=== PATIENT | male | born 1950 | race African-American/Black ===

== ENCOUNTER 2016-08-04 10:16 | Emergency (ER) | payer OTHER, MEDICAID ==
[~2016-08-04] VITALS: Ht 180.3 cm; Wt 97.5 kg
[~2016-08-04 10:16] MED LIST: ASPI-264 OR; GABA-494 OR; HYDR-3682 PO; NAPR-607 OR; OME20GT; PROCTOSOL HC 2.5%; SENN8.6T26 PO; TIZA4TAB3 PO
[2016-08-04 11:38] VITALS: BP 108/82
== END 2016-08-04 12:24 | disposition home or self-care (01) ==
LOC: ER 10:19
DX: L03.114 Cellulitis of left upper limb (principal); Z87.891 Personal history of nicotine dependence; Z88.6 Allergy status to analgesic agent; Z79.82 Long term (current) use of aspirin; Z79.899 Other long term (current) drug therapy

== ENCOUNTER 2017-02-21 02:11 | Emergency (ER) | payer OTHER, MEDICAID ==
[~2017-02-21] VITALS: Ht 180.3 cm; Wt 100.7 kg
[~2017-02-21 02:11] MED LIST changes: -NAPR-607 OR; +NAPR500T4 OR
[2017-02-21 03:17] LABS: Urine Bilirubin Negative (Negative); Urine Blood Negative /uL (Negative); Urine Color Yellow (Yellow); Urine Glucose Normal (Normal); Urine Ketone Negative (Negative); Urine Nitrite Negative (Negative); Urine RBC 3 /hpf (0 - 3); Urine Squamous Epithelial Cell FEW /hpf (<5); Urine Urobilinogen Normal (Negative); Urine pH 5.5 (5.0-8.0)
[2017-02-21 03:25] LABS: Basophils # (auto) 0.1 uL; Basophils % (auto) 0.7 % (0.0-2.0); Eosinophils # (auto) 0.4 uL; Eosinophils % (auto) 4.8 % (0.0-7.0); Hematocrit 34.9 % (41.0-53.0); Hemoglobin 11.9 g/dL (13.5-17.5); Lymphocytes # (auto) 3.4 uL; Lymphocytes % (auto) 37.9 % (10.0-50.0); Mean Corpuscular Hemoglobin 31.9 pg (28.0-32.0); Mean Corpuscular Hgb Conc. 34.1 g/dL (32.0-36.0); Mean Corpuscular Volume 93.6 fL (80.0-100.0); Mean Platelet Volume 8.4 fL (6.9-10.8); Monocytes # (auto) 0.7 uL; Monocytes % (auto) 7.9 % (0.0-12.0); Neutrophils # (auto) 4.4 uL; Neutrophils % (auto) 48.7 % (37.0-80.0); Nucleated Red Blood Cells % 0.1 %; Platelet Count (auto) 226 10^3/uL (140-450); Red Cell Distribution Width 13.7 % (11.8-14.3)
[2017-02-21 03:44] LABS: Albumin 3.8 g/dL (3.4-5.0); Amylase 74 U/L (25-115); Anion Gap 7 (5-15); BUN/Creatinine Ratio 12.2; Blood Urea Nitrogen 16 mg/dL (7-18); Calcium 8.3 mg/dL (8.5-10.1); Carbon Dioxide 28 mmol/L (21-32); Chloride 112 mmol/L (98-107); GFR African American 70 mL/min; GFR Non-African American 58 mL/min; Glucose 112 mg/dL (74-106); Magnesium 2.3 mg/dL (1.6-2.6); Potassium 4.1 mmol/L (3.5-5.1); Sodium 147 mmol/L (136-145)
[2017-02-21 03:46] LABS: Alkaline Phosphatase 108 U/L (45-117); Aspartate Aminotransferase 17 U/L (15-37); Bilirubin, Total 0.3 mg/dL (0.2-1.0); Total Protein 7.5 g/dL (6.4-8.2)
[2017-02-21 04:29] LABS: INR 0.95 (0.9-1.15); Partial Thromboplastin Time 26.6 sec (22.64-33.71); Prothrombin Time 10.3 sec (9.37-12.3)
[2017-02-21 05:27] VITALS: BP 113/68
[2017-02-21] MEDS ORDERED: KETOROLAC TROMETH 60MG/2ML VIAL IM ONE (07:45)
== END 2017-02-21 08:01 | disposition home or self-care (01) ==
LOC: EDBD 02:15 → ER 02:15
DX: S39.011A Strain of muscle, fascia and tendon of abdomen, initial encounter (principal); M54.9 Dorsalgia, unspecified; G89.29 Other chronic pain; Z88.6 Allergy status to analgesic agent; Z79.899 Other long term (current) drug therapy; Z79.82 Long term (current) use of aspirin; X58.XXXA Exposure to other specified factors, initial encounter; Y93.89 Activity, other specified; Y92.89 Other specified places as the place of occurrence of the external cause; Y99.8 Other external cause status
CPT/HCPCS: 36415; 74176; 80053; 81001; 82150; 83690; 83735; 84484; 85025; 85610; 85730; 93005

== ENCOUNTER 2017-08-26 15:49 | Emergency (ER) | payer OTHER, MEDICAID ==
[~2017-08-26] VITALS: Ht 180.3 cm; Wt 97.5 kg
[~2017-08-26 15:49] MED LIST changes: -GABA-494 OR; +GABA100C9 OR; +NAPR500T31 OR; -NAPR500T4 OR
[2017-08-26 16:58] VITALS: BP 120/77
== END 2017-08-26 18:01 | disposition home or self-care (01) ==
LOC: ER 15:56
DX: S62.646A Nondisplaced fracture of proximal phalanx of right little finger, initial encounter for closed fracture (principal); Z88.6 Allergy status to analgesic agent; W18.39XA Other fall on same level, initial encounter; Y93.89 Activity, other specified; Y92.488 Other paved roadways as the place of occurrence of the external cause; Y99.8 Other external cause status
CPT/HCPCS: 29125; 73130

== ENCOUNTER 2018-10-07 05:30 | Emergency (ER) | payer OTHER, MEDICAID ==
[~2018-10-07] VITALS: Ht 180.3 cm; Wt 102.1 kg
[2018-10-07 05:50] VITALS: BP 118/54
== END 2018-10-07 08:26 | disposition home or self-care (01) ==
LOC: ER 05:30
DX: T17.228A Food in pharynx causing other injury, initial encounter (principal); Z88.6 Allergy status to analgesic agent; X58.XXXA Exposure to other specified factors, initial encounter; Y93.9 Activity, unspecified; Y99.8 Other external cause status; Y92.89 Other specified places as the place of occurrence of the external cause
CPT/HCPCS: 42809; 70490

== ENCOUNTER 2019-03-28 10:18 | Emergency (ER) | payer OTHER, MEDICAID ==
[~2019-03-28] VITALS: Ht 180.3 cm; Wt 98.4 kg
[2019-03-28 10:41] VITALS: BP 108/67
== END 2019-03-28 14:06 | disposition left against medical advice (07) ==
LOC: ER 10:18
DX: F22 Delusional disorders (principal); J45.909 Unspecified asthma, uncomplicated; F32.9 Major depressive disorder, single episode, unspecified; F41.9 Anxiety disorder, unspecified; E78.00 Pure hypercholesterolemia, unspecified; Z88.5 Allergy status to narcotic agent; Z79.82 Long term (current) use of aspirin; Z79.899 Other long term (current) drug therapy

== ENCOUNTER 2020-12-12 10:07 | Emergency (ER) | payer OTHER, MEDICAID ==
[~2020-12-12] VITALS: Ht 180.3 cm; Wt 104.3 kg
[~2020-12-12 10:07] MED LIST changes: -ASPI-264 OR; +ASPI325T33 OR; -TIZA4TAB3 PO; +TIZA4TAB7 PO
[2020-12-12 10:45] VITALS: BP 104/65
[2020-12-12] MEDS ORDERED: ACETAMINOPHEN 500 MG TAB PO ONE (11:30)
== END 2020-12-12 11:57 | disposition home or self-care (01) ==
LOC: ER 10:07
DX: S16.1XXA Strain of muscle, fascia and tendon at neck level, initial encounter (principal); S39.012A Strain of muscle, fascia and tendon of lower back, initial encounter; M50.30 Other cervical disc degeneration, unspecified cervical region; M51.36 Other intervertebral disc degeneration, lumbar region; J45.909 Unspecified asthma, uncomplicated; E78.5 Hyperlipidemia, unspecified; Z79.82 Long term (current) use of aspirin; Z79.899 Other long term (current) drug therapy; Z88.5 Allergy status to narcotic agent; V43.52XA Car driver injured in collision with other type car in traffic accident, initial encounter; Y93.89 Activity, other specified; Y92.89 Other specified places as the place of occurrence of the external cause; Y99.8 Other external cause status
CPT/HCPCS: 72040; 72100

== ENCOUNTER 2021-02-19 08:37 | Emergency (ER) | payer OTHER, MEDICAID ==
[~2021-02-19] VITALS: Ht 180.3 cm; Wt 95.3 kg
[2021-02-19 08:56] LABS: Urine WBC None Seen /hpf (0 - 3)
[2021-02-19 09:06] LABS: Urine Bacteria NONE SEEN /hpf (None Seen); Urine Blood Negative /uL (Negative); Urine Specific Gravity 1.015 (1.001-1.035)
[2021-02-19 09:10] LABS: Basophils # (auto) 0 10 ^3/uL (0-0.2); Basophils % (auto) 0.3 % (0.0-2.0); Eosinophils # (auto) 0 10 ^3/uL (0-0.8); Eosinophils % (auto) 0.1 % (0.0-7.0); Hematocrit 37.2 % (41.0-53.0); Hemoglobin 12.7 g/dL (13.5-17.5); Lymphocytes # (auto) 1.1 10 ^3/uL (0.4-5.4); Lymphocytes % (auto) 11.4 % (10.0-50.0); Mean Corpuscular Hemoglobin 32.4 pg (28.0-32.0); Mean Corpuscular Hgb Conc. 34.2 g/dL (32.0-36.0); Mean Corpuscular Volume 94.6 fL (80.0-100.0); Monocytes # (auto) 0.4 10 ^3/uL (0-1.3); Neutrophils # (auto) 8.4 10 ^3/uL (1.6-8.6); Neutrophils % (auto) 84.2 % (37.0-80.0); Red Blood Cells 3.93 10^6/uL (4.5-5.90); Red Cell Distribution Width 13.5 % (11.8-14.3)
[2021-02-19 09:21] LABS: Amphetamine Screen, Urine NEGATIVE (NEGATIVE); Barbiturate Scree,Urine NEGATIVE (NEGATIVE); Benzodiazephine Screen, Urine NEGATIVE (NEGATIVE); Cannabinoid Screen, Urine NEGATIVE (NEGATIVE); Cocaine Screen, Urine NEGATIVE (NEGATIVE); Opiate Scree,Urine NEGATIVE (NEGATIVE); Phencyclidine Screen, Urine NEGATIVE (NEGATIVE)
[2021-02-19 09:29] LABS: Calcium 9.1 mg/dL (8.5-10.1); Potassium 3.7 mmol/L (3.5-5.1)
[2021-02-19 09:31] LABS: BUN/Creatinine Ratio 11.2
[2021-02-19 09:33] LABS: Bilirubin, Total 0.4 mg/dL (0.2-1.0); Total Protein 7.8 g/dL (6.4-8.2)
[2021-02-19 12:02] VITALS: BP 125/66
== END 2021-02-19 12:43 | disposition home or self-care (01) ==
LOC: ER 08:37
DX: G44.40 Drug-induced headache, not elsewhere classified, not intractable (principal); F12.10 Cannabis abuse, uncomplicated; E78.5 Hyperlipidemia, unspecified; Z79.899 Other long term (current) drug therapy; Z88.6 Allergy status to analgesic agent
CPT/HCPCS: 36415; 70450; 80053; 80307; 81001; 85025; 93005

== ENCOUNTER 2021-06-18 09:52 | Emergency (ER) | payer OTHER ==
[~2021-06-18] VITALS: Ht 180.3 cm; Wt 108.4 kg
[2021-06-18 10:49] LABS: Basophils # (auto) 0 10 ^3/uL (0-0.2); Basophils % (auto) 0.5 % (0.0-2.0); Eosinophils # (auto) 0.4 10 ^3/uL (0-0.8); Eosinophils % (auto) 5.7 % (0.0-7.0); Hematocrit 34.3 % (41.0-53.0); Hemoglobin 11.7 g/dL (13.5-17.5); Lymphocytes # (auto) 2.5 10 ^3/uL (0.4-5.4); Lymphocytes % (auto) 36.6 % (10.0-50.0); Mean Corpuscular Hgb Conc. 34.1 g/dL (32.0-36.0); Mean Corpuscular Volume 93.8 fL (80.0-100.0); Monocytes # (auto) 0.4 10 ^3/uL (0-1.3); Monocytes % (auto) 5.9 % (0.0-12.0); Neutrophils # (auto) 3.5 10 ^3/uL (1.6-8.6); Neutrophils % (auto) 51.3 % (37.0-80.0); Nucleated Red Blood Cells % 0.1 %; Red Blood Cells 3.66 10^6/uL (4.5-5.90); Red Cell Distribution Width 13.6 % (11.8-14.3); White Blood Cell 6.9 10^3/uL (4.4-10.8)
[2021-06-18 10:58] LABS: Calcium 8.7 mg/dL (8.5-10.1); Potassium 3.8 mmol/L (3.5-5.1)
[2021-06-18 11:07] LABS: BUN/Creatinine Ratio 8.6; Bilirubin, Total 0.4 mg/dL (0.2-1.0); Total Protein 7.6 g/dL (6.4-8.2)
[2021-06-18] MEDS ORDERED: PRED20TA2 PO (15:12)
[2021-06-18] MEDS ORDERED: AZIT1POW12 PO (15:12)
[2021-06-18] MEDS ORDERED: ALBUAER3 IN (15:12)
[2021-06-18 15:13] VITALS: BP 123/69
== END 2021-06-18 15:15 | disposition home or self-care (01) ==
LOC: ER 09:52
DX: J18.9 Pneumonia, unspecified organism (principal); J45.909 Unspecified asthma, uncomplicated; E78.5 Hyperlipidemia, unspecified; F12.10 Cannabis abuse, uncomplicated; Z20.822 Contact with and (suspected) exposure to COVID-19
CPT/HCPCS: 36415; 71045; 80053; 84484; 85025; 87426; 93005

== ENCOUNTER 2022-10-20 05:36 | Emergency (ER) | payer BC, OTHER ==
[~2022-10-20] VITALS: Ht 180.3 cm; Wt 113.6 kg
[~2022-10-20 05:36] MED LIST changes: +ALBUAER3 IN; +ASPI1TAB38 OR; -ASPI325T33 OR; +AZIT1POW12 PO; +GABA-1308 OR; -GABA100C9 OR; +NAPR-746 OR; -NAPR500T31 OR; +PRED20TA2 PO; +TIZA-142 PO; -TIZA4TAB7 PO
[2022-10-20 05:59] VITALS: BP 150/73
[2022-10-20 07:20] LABS: Basophils # (auto) 0 10 ^3/uL (0-0.2); Basophils % (auto) 0.3 % (0.0-2.0); Eosinophils # (auto) 0.3 10 ^3/uL (0-0.8); Eosinophils % (auto) 3.4 % (0.0-7.0); Hematocrit 35.4 % (41.0-53.0); Hemoglobin 12.4 g/dL (13.5-17.5); Lymphocytes # (auto) 2.8 10 ^3/uL (0.4-5.4); Lymphocytes % (auto) 34.6 % (10.0-50.0); Mean Corpuscular Hemoglobin 32.5 pg (28.0-32.0); Mean Corpuscular Hgb Conc. 34.9 g/dL (32.0-36.0); Mean Corpuscular Volume 93.1 fL (80.0-100.0); Monocytes # (auto) 0.7 10 ^3/uL (0-1.3); Monocytes % (auto) 8.3 % (0.0-12.0); Neutrophils # (auto) 4.3 10 ^3/uL (1.6-8.6); Neutrophils % (auto) 53.4 % (37.0-80.0); Nucleated Red Blood Cells % 0.1 %; Red Cell Distribution Width 13.4 % (11.8-14.3); White Blood Cell 8.1 10^3/uL (4.4-10.8)
[2022-10-20 07:24] LABS: Albumin 3.9 g/dL (3.4-5.0); Calcium 8.7 mg/dL (8.5-10.1); Potassium 4.5 mmol/L (3.5-5.1)
[2022-10-20 07:29] LABS: BUN/Creatinine Ratio 15.7 (10.0-20.0); Bilirubin, Total 0.3 mg/dL (0.2-1.0)
== END 2022-10-20 09:21 | disposition left against medical advice (07) ==
LOC: ER 05:36
DX: G45.9 Transient cerebral ischemic attack, unspecified (principal); I10 Essential (primary) hypertension; F12.10 Cannabis abuse, uncomplicated; F41.9 Anxiety disorder, unspecified; F32.9 Major depressive disorder, single episode, unspecified; E78.5 Hyperlipidemia, unspecified; J44.9 Chronic obstructive pulmonary disease, unspecified
CPT/HCPCS: 36415; 70450; 71045; 80053; 84484; 85025; 93005

== ENCOUNTER 2022-11-14 04:54 | Emergency (ER) | payer OTHER ==
[~2022-11-14] VITALS: Ht 177.8 cm; Wt 111.0 kg
[2022-11-14 07:31] VITALS: BP 137/57
[2022-11-14] MEDS ORDERED: NEOMYCIN-BACITRACIN-POLYM UNITDOSE PKG TOP OINT TOP ONE (08:00)
[2022-11-14] MEDS ORDERED: SILV1CRE82 EX (08:09)
[2022-11-14] MEDS ORDERED: ACETAMINOPHEN 500 MG TAB PO ONE (08:15)
== END 2022-11-14 08:31 | disposition home or self-care (01) ==
LOC: ER 04:54
DX: T25.222A Burn of second degree of left foot, initial encounter (principal); J45.909 Unspecified asthma, uncomplicated; E78.5 Hyperlipidemia, unspecified; Z88.5 Allergy status to narcotic agent; Z79.2 Long term (current) use of antibiotics; Z79.82 Long term (current) use of aspirin; Z79.899 Other long term (current) drug therapy; X11.8XXA Contact with other hot tap-water, initial encounter; Y93.89 Activity, other specified; Y92.89 Other specified places as the place of occurrence of the external cause; Y99.8 Other external cause status
CPT/HCPCS: 16020

== ENCOUNTER 2022-11-25 07:44 | Emergency (ER) | payer OTHER ==
[~2022-11-25] VITALS: Ht 180.3 cm; Wt 114.8 kg
[~2022-11-25 07:44] MED LIST changes: +SILV1CRE82 EX
[2022-11-25 08:23] VITALS: BP 123/65
[2022-11-25] MEDS ORDERED: CEPH500C PO (08:30)
== END 2022-11-25 08:46 | disposition home or self-care (01) ==
LOC: ER 07:44
DX: T24.211A Burn of second degree of right thigh, initial encounter (principal); T25.221A Burn of second degree of right foot, initial encounter; T79.9XXD Unspecified early complication of trauma, subsequent encounter; F41.9 Anxiety disorder, unspecified; F32.9 Major depressive disorder, single episode, unspecified; J45.909 Unspecified asthma, uncomplicated; E78.5 Hyperlipidemia, unspecified; F15.90 Other stimulant use, unspecified, uncomplicated; Z48.00 Encounter for change or removal of nonsurgical wound dressing; Z88.5 Allergy status to narcotic agent; Z98.890 Other specified postprocedural states; Z79.82 Long term (current) use of aspirin; Z79.899 Other long term (current) drug therapy; X12.XXXA Contact with other hot fluids, initial encounter; Y93.89 Activity, other specified; Y92.89 Other specified places as the place of occurrence of the external cause; Y99.8 Other external cause status
CPT/HCPCS: 16000

== ENCOUNTER 2022-11-26 08:51 | Emergency (ER) | payer OTHER ==
[~2022-11-26] VITALS: Ht 180.3 cm; Wt 114.4 kg
[~2022-11-26 08:51] MED LIST changes: +CEPH500C PO
[2022-11-26 09:22] VITALS: BP 135/71; PULSE 74; RESP 18; TEMP 98.6; O2SAT 97
[2022-11-26] MEDS ORDERED: HYDROcodone-ACET 5/325MG TAB PO ONE (09:45)
== END 2022-11-26 09:56 | disposition home or self-care (01) ==
LOC: ER 08:51
DX: T25.211D Burn of second degree of right ankle, subsequent encounter (principal); T25.221D Burn of second degree of right foot, subsequent encounter; F41.9 Anxiety disorder, unspecified; J45.909 Unspecified asthma, uncomplicated; F32.9 Major depressive disorder, single episode, unspecified; E78.5 Hyperlipidemia, unspecified; F12.90 Cannabis use, unspecified, uncomplicated; Z79.899 Other long term (current) drug therapy; Z98.890 Other specified postprocedural states; X08.8XXD Exposure to other specified smoke, fire and flames, subsequent encounter

== ENCOUNTER 2022-12-08 03:04 | Emergency (ER) | payer OTHER ==
[~2022-12-08] VITALS: Ht 180.3 cm; Wt 104.5 kg
[2022-12-08 03:30] VITALS: O2SAT 95
[2022-12-08 04:52] LABS: Basophils # (auto) 0 10 ^3/uL (0-0.2); Basophils % (auto) 0.4 % (0.0-2.0); Eosinophils # (auto) 0.4 10 ^3/uL (0-0.8); Eosinophils % (auto) 4.4 % (0.0-7.0); Hematocrit 35.6 % (41.0-53.0); Hemoglobin 12.4 g/dL (13.5-17.5); Lymphocytes # (auto) 2.9 10 ^3/uL (0.4-5.4); Lymphocytes % (auto) 35.8 % (10.0-50.0); Mean Corpuscular Hemoglobin 32.7 pg (28.0-32.0); Mean Corpuscular Hgb Conc. 34.8 g/dL (32.0-36.0); Monocytes # (auto) 0.6 10 ^3/uL (0-1.3); Neutrophils # (auto) 4.3 10 ^3/uL (1.6-8.6); Neutrophils % (auto) 52.4 % (37.0-80.0); Nucleated Red Blood Cells % 0.1 %; Red Blood Cells 3.79 10^6/uL (4.5-5.90); Red Cell Distribution Width 13.6 % (11.8-14.3); White Blood Cell 8.2 10^3/uL (4.4-10.8)
[2022-12-08 05:11] LABS: Albumin 3.9 g/dL (3.4-5.0); BUN/Creatinine Ratio 16.4 (10.0-20.0); Calcium 8.3 mg/dL (8.5-10.1); Potassium 3.8 mmol/L (3.5-5.1)
[2022-12-08 05:14] LABS: Bilirubin, Total 0.2 mg/dL (0.2-1.0); Total Protein 7.3 g/dL (6.4-8.2)
[2022-12-08 08:10] VITALS: BP 113/54; PULSE 71; RESP 19; TEMP 97.8
== END 2022-12-08 08:15 | disposition home or self-care (01) ==
LOC: ER 03:04
DX: T25.211D Burn of second degree of right ankle, subsequent encounter (principal); T25.221D Burn of second degree of right foot, subsequent encounter; J45.909 Unspecified asthma, uncomplicated; E78.5 Hyperlipidemia, unspecified; I10 Essential (primary) hypertension; F12.10 Cannabis abuse, uncomplicated; Z88.6 Allergy status to analgesic agent; X11.8XXD Contact with other hot tap-water, subsequent encounter
CPT/HCPCS: 36415; 80053; 83605; 85025

== ENCOUNTER 2024-11-26 15:40 | Emergency (ER) | payer OTHER ==
[~2024-11-26] VITALS: Ht 180.3 cm; Wt 113.0 kg
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
[2024-11-26] MEDS: HYDROcodone-ACET 5/325MG TAB PO ONE (16:45)
[2024-11-26 16:52] VITALS: BP 109/58; PULSE 64; RESP 16; TEMP 98.7; O2SAT 98
== END 2024-11-26 16:57 | disposition left against medical advice (07) ==
LOC: ER 15:40 → EDBD 15:40 → ER 16:57
DX: S66.912A Strain of unspecified muscle, fascia and tendon at wrist and hand level, left hand, initial encounter (principal); M54.50 Low back pain, unspecified; F41.9 Anxiety disorder, unspecified; J45.909 Unspecified asthma, uncomplicated; F32.A Depression, unspecified; E78.5 Hyperlipidemia, unspecified; I10 Essential (primary) hypertension; G89.29 Other chronic pain; F12.90 Cannabis use, unspecified, uncomplicated; F10.90 Alcohol use, unspecified, uncomplicated; Z98.890 Other specified postprocedural states; Z88.5 Allergy status to narcotic agent; Z79.82 Long term (current) use of aspirin; Z79.1 Long term (current) use of non-steroidal anti-inflammatories (NSAID); Z79.899 Other long term (current) drug therapy; V69.9XXA Occupant (driver) (passenger) of heavy transport vehicle injured in unspecified traffic accident, initial encounter; Y93.89 Activity, other specified; Y92.488 Other paved roadways as the place of occurrence of the external cause; Y99.8 Other external cause status; Y90.9 Presence of alcohol in blood, level not specified

== ENCOUNTER 2024-12-12 07:03 | Day surgery (SDC) | payer OTHER ==
[~2024-12-12] VITALS: Ht 180.3 cm; Wt 113.4 kg
[2024-12-12] VITALS (7 sets, daily range): BP systolic 98–110; BP diastolic 73–80; TEMP 98; O2SAT 94–95
[~2024-12-12 07:03] MED LIST changes: -AZIT1POW12 PO; -CEPH500C PO; -NAPR-746 OR; +OXYC30TA PO; -PRED20TA2 PO; -SENN8.6T26 PO
[2024-12-12] MEDS: IODIXANOL 320MG/ML 100ML BTL IV ONE (09:39)
[2024-12-12] MEDS: VERAPAMIL 2.5MG/ML INJ 2ML VIAL IV ONE (09:56)
[2024-12-12] MEDS: HEPARIN SODIUM (PORCINE) 5000 UNITS/ML 1ML VIAL ONE (09:56)
[2024-12-12] MEDS: ANGIOMAX 250 MG VIAL IV ONE (09:56)
[2024-12-12] MEDS: fentaNYL CITRATE 100 MCG/2 ML VL ONE (09:57)
[2024-12-12] MEDS: LIDOCAINE 2%HCL (LOCAL ANESTH.) INJ 20ML MDV ONE (09:57)
[2024-12-12] MEDS: MIDAZOLAM HCL 2MG/2ML 2ml VIAL (1mg/ml) ONE (09:57)
[2024-12-12] MEDS: SODIUM CHL 0.9% 0 ML ONE (09:57)
--- NOTE | 2024-12-12 11:36 | DVHOP2 ---
Operative Report - 2 Report Details Date: 12/12/24 Preop Diagnosis: CAD. Postop Diagnosis: Mild cardiomyopathy. Surgeon: Kerrie Stallings MD Anesthesiologist: Conscious sedation Anesthesia: Mac, Local Consent: The patient was informed of the risks and benefits of the procedure. These include but are not limited to complications of anesthesia, postoperative infection, incomplete relief of symptoms, recurrence of symptoms, damage to blood vessels, nerves and tendons, deep venous thrombosis, pulmonary embolism and possible need for repeat surgery in the future. Complications: No complications Findings: Mild cardiomyopathy. Indications for Surgery: Chest pain Name of Procedure Performed Right and left heart catheterization. Bilateral cine coronary angiography. Left ventriculography. Procedure Details Procedure Details: Prior local anesthesia with 2% lidocaine to the right wrist and full informed consent obtained the patient was prepped and draped in usual fashion followed by placement of a six Upper Sor[place] sheath into the radial artery. We then performed angiographic evaluation with a Angel catheter. Ventriculography was also performed with the Angel. Placed a six Upper Sor[place] sheath into the femoral vein through which a Sutherlin-James catheter was advanced to the right atrium right ventricle pulmonary artery capillary wedge pressure positions where pressures were obtained and recorded without complications. Hemodynamics: Aortic blood pressure was 130/70. End-diastolic pressure was 13. There was no gradient across the aortic valve on pullback Lead right atrial pressure was proximal seven. Right ventricular pressure was 30/70 with a pulmonary pressure of 30 over 18. Capillary wedge pressure was 10- 13. Cardiac output was 5.7. Coronary anatomy: The RCA is a large dominant vessel it is normal in its proximal mid and distal segments. The PDA and posterolateral branches are normal Left main is large and normal. Left anterior descending is large and normal with two diagonals free of significant disease. The circumflex is a large vessel and it is normal. Ventriculography in the [place] projection shows an EF of about 45%. Impression: Mildly elevated left ventricular end-diastolic pressure at rest with normal pulmonary pressures. Mildly decreased left ventricular function. No significant coronary artery disease. Recommendations: Continue medical therapy. Risk factor modification to continue. Condition Good Disposition Home Date of Service: Dec 12, 2024 Billing Provider: KERRIE STALLINGS Sr., MD Cardiology Common Codes: 70832-EVXMFIL INP/OBS CARE (High) Cardiology Procedure Codes: 87193-AVZJ HEART CATH W/INTRA INJ, 23221-G/R & L HEART CATH FOR LVG, 27394-PII & PLCMT OF FLOW DIR CATH KERRIE STALLINGS Sr., MD Dec 12, 2024 11:36
== END 2024-12-12 13:25 | disposition home or self-care (01) ==
LOC: CATH 07:03
PROVIDERS: ATTEND Internal Medicine
DX: I25.10 Atherosclerotic heart disease of native coronary artery without angina pectoris (principal); I11.9 Hypertensive heart disease without heart failure; I42.8 Other cardiomyopathies; I27.20 Pulmonary hypertension, unspecified; E03.9 Hypothyroidism, unspecified; J44.9 Chronic obstructive pulmonary disease, unspecified; N40.0 Benign prostatic hyperplasia without lower urinary tract symptoms; E78.5 Hyperlipidemia, unspecified; G47.33 Obstructive sleep apnea (adult) (pediatric); G47.00 Insomnia, unspecified; F41.8 Other specified anxiety disorders; F11.20 Opioid dependence, uncomplicated; E66.9 Obesity, unspecified; Z68.35 Body mass index [BMI] 35.0-35.9, adult; Z79.899 Other long term (current) drug therapy; Z87.01 Personal history of pneumonia (recurrent); Z88.8 Allergy status to other drugs, medicaments and biological substances; Z83.3 Family history of diabetes mellitus; Z82.49 Family history of ischemic heart disease and other diseases of the circulatory system
CPT/HCPCS: 93460; C1769; C1887; C1894; J1644; J2250; J3010; Q9967; 99152; 99153